=== PATIENT | male | born 1980 ===

== ENCOUNTER 2018-01-17 12:46 | Emergency (ER) | payer BC ==
[~2018-01-17 12:46] MED LIST: Iopamidol 370 76% 100 ML VIAL ONE
[2018-01-17 13:32] LABS: #Basophils 0.1 thou/uL (0.0-0.2); #Lymphocytes 1.8 thou/uL (1.20-3.40); #Monocytes 0.5 thou/uL (0.11-0.59); #Neutrophils 3.7 thou/uL (1.40-6.50); %Basophils 1.2 % (0.0-1.0); %Eosinophils 13.6 % (0.0-10.0); %Lymphocytes 25.4 % (21.0-51.0); %Monocytes 6.8 % (0.0-10.0); Hemoglobin 17.5 g/dL (14.0-18.0); Mean Corpuscular HGB CONC 34.9 g/dL (32.0-36.0); Mean Corpuscular Hemoglobin 30.7 pg (27.0-31.0); Mean Platelet Volume 7.5 fL (7.4-10.4); Platelet Count 191 thou/uL (130-400); RBC Distribution Width 10.8 % (11.5-14.5); Red Blood Cell (RBC) Count 5.72 mill/uL (4.70-6.10)
[2018-01-17 13:34] LABS: ALT (SGPT) 35 U/L (8-55); AST (SGOT) 29 U/L (5-34); Albumin 4.6 g/dL (3.5-5.0); Alkaline Phosphatase 81 U/L (40-150); Anion Gap 15 mmol/L (10-20); BUN (Urea Nitrogen) 10 mg/dL (8.9-20.6); Bilirubin, Total 1.3 mg/dL (0.2-1.2); Calc. Creatinine Clearance 0 mL/min (70-130); Calcium 10.2 mg/dL (7.8-10.44); Carbon Dioxide 23 mmol/L (22-29); Chloride 104 mmol/L (98-107); Estimated GFR-MDRD 85; Globulin 3.6 g/dL (2.4-3.5); Glucose 118 mg/dL (70-105); Potassium 4.2 mmol/L (3.5-5.1); Protein, Total 8.2 g/dL (6.0-8.3); Sodium 138 mmol/L (136-145)
[2018-01-17] MEDS ORDERED: Famotidine/PF 20 mg/2ml Vial ONE (13:48)
[2018-01-17 14:18] LABS: CKMB 1.5 ng/mL (0-6.6); Troponin I Less than 0.010 ng/mL (< 0.028)
--- NOTE | 2018-01-17 14:31 | RAD ---
CHEST 2 VIEWS: HISTORY: Shortness of breath. COMPARISON: None. FINDINGS: Normal cardiac silhouette. The pulmonary vessels and hilum are normal. Costophrenic angles are nicolasa r. No consolidation or mass. No pneumothorax or osseous abnormalities. IMPRESSION: No acute cardiopulmonary process. POS: [facility]
[2018-01-17] MEDS ORDERED: Ketorolac Tromethamine 30 MG/ML VIAL ONE (17:24)
--- NOTE | 2018-01-17 17:46 | CT ---
CT ABDOMEN AND PELVIS WITH IV CONTRAST: INDICATIONS: Epigastric abdominal pain. History of appendectomy. FINDINGS: There is mild right basilar atelectasis. There is mild fatty infiltration of the liver. The gallbladder is mildly distended. There is nonspecific mirna mesentery, with shotty appearing lymph nodes within the central mesenteric root. The adrenal glands and kidneys are normal appearing. The spleen is normal appearing. The bladder is moderately distended. The rectum and perirectal soft tissues are unremarkable. The small bowel is of normal caliber. No drainable fluid collection is evident. No definite acute osseous abnormality is evident. IMPRESSION: 1. Mild prominence of the gallbladder is nonspecific. There is no overt inflammatory change suggest te of acute cholecystitis. If clinically indicated, a right upper quadrant ultrasound may be helpfu l for additional evaluation. 2. Fatty liver. 3. Mild right basilar atelectasis. 4. Post surgical changes of an appendectomy. 5. Some mirna appearance to the central mesentery, with shotty appearing lymph nodes, nonspecific. This can be seen with idiopathic entities, such as sclerosing mesenteritis. This can also be seen wi th pancreatitis. Recommend correlation with clinical examination and laboratory evaluation. This ca n also be seen with entities such as carcinoid syndrome and lymphoma, which are both felt to be less likely. POS: [facility]
--- NOTE | 2018-01-17 18:46 | ULT ---
RIGHT UPPER QUADRANT ULTRASOUND: HISTORY: Epigastric pain. COMPARISON: None. TECHNIQUE: Utilizing a Multi-Hertz transducer, sonographic imaging of the right upper quadrant was performed in the longitudinal and transverse planes. FINDINGS: The pancreas is not well seen due to overlying bowel gas. The visualized IVC is unremarkable. The m ain portal vein is patent. Appropriate directional flow. Heterogeneous echotexture of the visualized hepatic parenchymal. The heterogeneity may be due to hep atic steatosis or hepatocellular disease. Subsequent evaluation for hepatic masses and intrahepatic biliary dilatation is limited. The right hepatic lobe measures 16.4 cm. The left hepatic lobe is no t well identified. Right kidney: Cortical thinning. No hydronephrosis. The right kidney measures 6.5 x 6.3 x 10.3 cm. The common bile duct is obscured. No sonographic evidence of cholelithiasis, gallbladder wall thickening, or pericholecystic fluid. e strip cleaner reports a negative Little sign. IMPRESSION: Limited evaluation due to bowel gas. No definite sonographic evidence of cholelithiasis or cholecyst itis. POS: [facility]
--- NOTE | 2018-01-22 15:17 | EKG ---
Test Reason : ABD PAIN Blood Pressure : / mmHG Vent. Rate : 057 BPM Atrial Rate : 057 BPM P-R Int : 146 ms QRS Dur : 092 ms QT Int : 418 ms P-R-T Axes : 005 004 014 degrees QTc Int : 406 ms Sinus bradycardia Otherwise normal ECG Confirmed by ROBERTO SUGGS DO ([id number]), deputy editor in chief JACE MORILLO ([id number] on 01/22/2018 3:17:05 PM Referred By: Confirmed By:ROBERTO SUGGS DO
== END 2018-01-17 17:25 | disposition home or self-care (01) ==
LOC: SCSER 12:46
DX: R10.13 Epigastric pain (principal)
CPT/HCPCS: 71046; 74177; 76705; 80053; 82553; 83605; 83690; 84443; 84484; 85025; 93005; 96361; 96374; 96375; J1885; S0028